=== PATIENT | male | born 1970 | race Two or more races ===

== ENCOUNTER 2020-07-22 15:07 | Emergency (ER) | payer BC ==
--- NOTE | 2020-07-22 15:15 | NUR ---
called - no answer
--- NOTE | 2020-07-22 15:22 | NUR ---
Patient left without being seen by ER Physician
== END 2020-07-22 15:24 | disposition left against medical advice (07) ==
LOC: ER 15:23
DX: Z53.21 Procedure and treatment not carried out due to patient leaving prior to being seen by health care provider (principal)

== ENCOUNTER 2020-07-22 16:07 | Emergency (ER) | payer BC, MEDICAID ==
[~2020-07-22] VITALS: Ht 172.7 cm; Wt 90.7 kg
--- NOTE | 2020-07-22 16:07 | NUR ---
CALLED TO TRIAGE,PT IN RESTROOM
[2020-07-22 16:35] VITALS: BP 103/72
--- NOTE | 2020-07-22 18:20 | NUR ---
patient left before physically see by .
== END 2020-07-22 18:20 | disposition home or self-care (01) ==
LOC: ER 16:09
DX: R50.9 Fever, unspecified (principal); R05 Cough; R43.9 Unspecified disturbances of smell and taste; Z53.21 Procedure and treatment not carried out due to patient leaving prior to being seen by health care provider